=== PATIENT | female | born 1950 | race Caucasian/White ===

== ENCOUNTER → 2016-09-09 | Outpatient (CLI) | payer MEDICARE ==
[2015-01-28 15:30] VITALS: BP 116/59
[~2016-09-09] MED LIST: ASCO500C PO; CLOP75TA PO; CRESTOR10 MG PO; FLUT1DIS3 IH; GEMF600T3 PO; HYDR25TA9 PO; LOSA100T6 PO; PARO40TA61 PO; POTA10TA12 PO; UBID100C26 PO; VITA400C6 PO; VITA80003 PO
--- NOTE | 2016-09-09 14:08 | KCIC ---
Two view chest Indication: Chronic shortness of air Findings: The heart size is normal. Pulmonary vasculature is within normal limits. There is no pleural effusion, consolidating infiltrate, or pneumothorax. There are posterior changes of a median sternotomy. Impression: No acute disease of the chest. Electronically signed by: Cristopher Castaneda MD (09/09/2016 2:05 PM)
== END | disposition home or self-care (01) ==
LOC: KCIC 13:38
PROVIDERS: ATTEND Internal Medicine Pulmonary Disease
DX: J44.9 Chronic obstructive pulmonary disease, unspecified (principal); F17.200 Nicotine dependence, unspecified, uncomplicated
CPT/HCPCS: 71020

== ENCOUNTER → 2016-10-12 | Outpatient (CLI) | payer MEDICARE ==
[2015-01-28 15:30] VITALS: BP 116/59
--- NOTE | 2016-10-12 10:31 | RAD ---
CT chest without contrast 10/12/2016 Clinical indication: Tobacco use. COPD. Lung cancer screening. Comparison: None. Technique: Multiple CT images of the chest obtained without contrast according to standard protocol. Coronal and sagittal reformations were obtained. PQRS Compliance Statement: One or more of the following individualized dose reduction techniques were utilized for this examination: 1. Automated exposure control 2. Adjustment of the mA and/or kV according to patient size 3. Use of iterative reconstruction technique Findings: Chest: There are calcified nodules in the right thyroid gland, largest measuring 11 mm. Prior median sternotomy and coronary artery revascularization. [place] coronary artery vascular calculations. Heart size is normal without significant pericardial effusion. Thoracic aorta is normal in caliber with mild scattered calcified atheromatous disease. 3 mm noncalcified nodule in the right upper lobe (series 4/image 57). Tiny calcified granuloma in the lingula. There is a 3 mm noncalcified nodule in the left upper lobe (series 4/image 64). No pleural effusion or pneumothorax. Limited images of the upper abdomen: Prior cholecystectomy. Impression: 1. Two small bilateral 3 mm noncalcified pulmonary nodules. Lung RADS category 2. Recommendation: Continue annual screening with low-dose CT in 12 months.
== END | disposition home or self-care (01) ==
LOC: CT 08:42
PROVIDERS: ATTEND Internal Medicine Pulmonary Disease
DX: Z12.2 Encounter for screening for malignant neoplasm of respiratory organs (principal); Z72.0 Tobacco use; J44.9 Chronic obstructive pulmonary disease, unspecified
CPT/HCPCS: 71250

== ENCOUNTER 2017-05-02 14:39 | Emergency (ER) | payer MEDICARE ==
[2017-05-02] MEDS: HYDROmorphone 2 MG/ML VIAL IM ×2 (16:04)
== END 2017-05-02 17:05 | disposition home or self-care (01) ==
LOC: ER 14:39
DX: G89.29 Other chronic pain (principal); M25.551 Pain in right hip; I10 Essential (primary) hypertension; F41.9 Anxiety disorder, unspecified; F32.9 Major depressive disorder, single episode, unspecified; E78.00 Pure hypercholesterolemia, unspecified; I25.2 Old myocardial infarction; Z95.1 Presence of aortocoronary bypass graft; Z88.8 Allergy status to other drugs, medicaments and biological substances
CPT/HCPCS: 96372; 99283-25; J1170

== ENCOUNTER 2017-05-11 05:55 | Day surgery (SDC) | payer MEDICARE ==
[2017-05-11] MEDS: IV RINGERS,LACTATED 1000ML 1,000 ML IV (06:35)
[2017-05-11] MEDS ORDERED: ONDANSETRON PF 4 MG/2 ML VIAL. IV (07:00)
[2017-05-11] MEDS ORDERED: MORPHINE SULFATE 2 MG/ML DISP.SYRIN. IV (07:00)
[2017-05-11] MEDS ORDERED: fentaNYL PF VIAL 100 MCG/2 ML VIAL IV (07:00)
[2017-05-11] MEDS ORDERED: LIDOCAINE 1% PF 2 ML VIAL. ID (07:00)
[2017-05-11] MEDS ORDERED: PROCHLORPERAZINE 10 MG/2 ML VIAL. IV (07:00)
[2017-05-11] MEDS ORDERED: ROPIVacaine 0.2% PF 10 ML VIAL. (07:04)
[2017-05-11] MEDS ORDERED: LIDOCAINE 2% PF Vial for OR 5 ML VIAL. (07:13)
[2017-05-11] MEDS ORDERED: PROPOFOL 20 ML IV (07:13)
[2017-05-11] MEDS ORDERED: ONDANSETRON PF 4 MG/2 ML VIAL. (07:13)
[2017-05-11] MEDS ORDERED: MIDAZOLAM HCL/PF 2 MG/2 ML VIAL. (07:13)
[2017-05-11] MEDS ORDERED: fentaNYL PF VIAL 100 MCG/2 ML VIAL ×4 (07:13→10:14)
[2017-05-11] MEDS ORDERED: DEXAMETHASONE SOD PHOS 20 MG/5 ML VIAL. (07:13)
[2017-05-11] MEDS ORDERED: ROCURONIUM 50 MG/5 ML VIAL. (07:48)
[2017-05-11] MEDS ORDERED: GLYCOPYRROLATE 1 MG/5 ML VIAL. (08:08)
[2017-05-11] MEDS ORDERED: NEOSTIGMINE METHYLSULFATE 5 MG/5 ML SYRINGE. (08:46)
[2017-05-11] MEDS ORDERED: SEVOFLURANE 61 TO 120 MINUTES. IH (08:58)
[2017-05-11] MEDS: fentaNYL PF VIAL 100 MCG/2 ML VIAL IV ×3 (09:46→10:17)
[2017-05-11] MEDS: HYDROcodone/APAP 7.5/325MG 1 TAB TABLET PO (10:28)
== END 2017-05-11 10:42 | disposition home or self-care (01) ==
LOC: SURG 05:55
DX: M70.61 Trochanteric bursitis, right hip (principal); I25.10 Atherosclerotic heart disease of native coronary artery without angina pectoris; E78.00 Pure hypercholesterolemia, unspecified; J44.9 Chronic obstructive pulmonary disease, unspecified; I10 Essential (primary) hypertension; M19.90 Unspecified osteoarthritis, unspecified site; F41.9 Anxiety disorder, unspecified; F17.200 Nicotine dependence, unspecified, uncomplicated; Z72.0 Tobacco use; Z86.69 Personal history of other diseases of the nervous system and sense organs; Z90.49 Acquired absence of other specified parts of digestive tract; Z87.39 Personal history of other diseases of the musculoskeletal system and connective tissue; Z88.8 Allergy status to other drugs, medicaments and biological substances
CPT/HCPCS: 29999; J0690; J1100; J2250; J2405; J2704; J2710; J2795; J3010; J3490

== ENCOUNTER 2017-05-23 19:38 | Emergency (ER) | payer MEDICARE ==
[2017-05-23 21:33] LABS: INFLUENZA A PATIENT NEGATIVE (NEGATIVE); INFLUENZA B PATIENT NEGATIVE (NEGATIVE); OBC FLU VALID
[2017-05-23] MEDS: predniSONE 10 MG TABLET PO (21:40)
[2017-05-23] MEDS: ALBUTEROL SULFATE 2.5 MG/3 ML NEBU. CONT NEB (21:52)
== END 2017-05-23 23:53 | disposition home or self-care (01) ==
LOC: ER 19:38
DX: J06.9 Acute upper respiratory infection, unspecified (principal); R06.2 Wheezing; I10 Essential (primary) hypertension; E78.00 Pure hypercholesterolemia, unspecified; I25.2 Old myocardial infarction; Z95.5 Presence of coronary angioplasty implant and graft; Z90.49 Acquired absence of other specified parts of digestive tract; Z88.8 Allergy status to other drugs, medicaments and biological substances; Z91.041 Radiographic dye allergy status
CPT/HCPCS: 71046; 87804; 87804-59; 94640; 94644; 99285-25; J7512; J7613

== ENCOUNTER 2017-07-19 11:37 | Emergency (ER) | payer MEDICARE ==
[2017-07-19] MEDS: DIPHTH,PERTUSS(ACELL),TET TOX 0.5 ML DISP.SYRIN. VAX IM (13:44)
[2017-07-19] MEDS: GELATIN SPONGE SIZE 12-7MM SPONGE. TP (13:45)
== END 2017-07-19 14:23 | disposition home or self-care (01) ==
LOC: ER 14:23
DX: S61.001A Unspecified open wound of right thumb without damage to nail, initial encounter (principal); E78.00 Pure hypercholesterolemia, unspecified; I10 Essential (primary) hypertension; I25.2 Old myocardial infarction; Z79.02 Long term (current) use of antithrombotics/antiplatelets; Z88.1 Allergy status to other antibiotic agents; Z88.8 Allergy status to other drugs, medicaments and biological substances; X58.XXXA Exposure to other specified factors, initial encounter; Y93.89 Activity, other specified; Y99.8 Other external cause status; Y92.89 Other specified places as the place of occurrence of the external cause
CPT/HCPCS: 90471; 90715; 99283-25

== ENCOUNTER → 2017-10-18 | Outpatient (CLI) | payer MEDICARE | END | disposition home or self-care (01) | LOC: CT 10:01 | DX: I70.0 Atherosclerosis of aorta (principal); I25.2 Old myocardial infarction; I10 Essential (primary) hypertension; E78.00 Pure hypercholesterolemia, unspecified; F41.9 Anxiety disorder, unspecified; J44.9 Chronic obstructive pulmonary disease, unspecified; E66.9 Obesity, unspecified; I25.10 Atherosclerotic heart disease of native coronary artery without angina pectoris; K21.9 Gastro-esophageal reflux disease without esophagitis; R91.8 Other nonspecific abnormal finding of lung field; Z87.891 Personal history of nicotine dependence; Z95.1 Presence of aortocoronary bypass graft; Z87.39 Personal history of other diseases of the musculoskeletal system and connective tissue; Z86.69 Personal history of other diseases of the nervous system and sense organs; Z90.49 Acquired absence of other specified parts of digestive tract; Z79.02 Long term (current) use of antithrombotics/antiplatelets | CPT/HCPCS: 71250 ==

== ENCOUNTER → 2017-11-09 | Outpatient (CLI) | payer MEDICARE ==
[2017-07-19 12:30] VITALS: BP 161/79
[~2017-11-09] MED LIST changes: +ALBU2.5V5 NEB; +FLUT1DIS IH; +HYDR-965 PO; +HYDR-971 PO; +METH4TAB2 PO; +PANT20TA2 PO; +PRED50TA PO; +TRAZ-85 PO; +VENTOLIN HFA18 GM INH
--- NOTE | 2017-11-09 16:16 | RAD ---
Bilateral lower extremity arterial duplex ultrasound 11/09/2017 Indication: Claudication. Comparison study: None Discussion: Ultrasound evaluation of the major arteries of the bilateral lower extremities was performed. Evaluation includes color Doppler imaging spectral analysis Right lower extremity: mild atherosclerotic plaquing and increased velocities are seen within the right common femoral artery is 227 cm/s. Findings suggest possible 30-70% stenosis. Within the proximal right superficial femoral artery there is an area of focal increased velocity measuring 191 cm/s possibly reflecting a secondary to 70% stenosis. Mild elevated velocity within the distal SFA is also seen accounting for inflow disease. Waveforms are grossly maintained. No other focal narrowings are identified. Left lower extremity: Elevated velocities seen within the left superficial femoral artery with velocity of 201 cm/s. Elevated velocity within the distal left SFA is also seen up to 194 cm/s. Findings again suggestive 30-70% stenosis. No other focal stenoses are identified. Waveforms are grossly maintained. Impression: 1. Possibly hemodynamically significant stenoses involving the right common femoral and superficial femoral arteries 2. Possible hemodynamic significant stenoses involving the left superficial femoral artery 3. Consider CT or conventional angiography for further evaluation as clinically indicated
== END | disposition home or self-care (01) ==
LOC: KCIC US 14:11
PROVIDERS: ATTEND Family Medicine
DX: I70.213 Atherosclerosis of native arteries of extremities with intermittent claudication, bilateral legs (principal); I25.2 Old myocardial infarction; I10 Essential (primary) hypertension; E78.00 Pure hypercholesterolemia, unspecified; J44.9 Chronic obstructive pulmonary disease, unspecified; E66.9 Obesity, unspecified; K21.9 Gastro-esophageal reflux disease without esophagitis; I25.10 Atherosclerotic heart disease of native coronary artery without angina pectoris; Z87.891 Personal history of nicotine dependence; Z87.39 Personal history of other diseases of the musculoskeletal system and connective tissue; Z86.69 Personal history of other diseases of the nervous system and sense organs; Z90.49 Acquired absence of other specified parts of digestive tract; Z88.1 Allergy status to other antibiotic agents; Z88.8 Allergy status to other drugs, medicaments and biological substances
CPT/HCPCS: 93925

== ENCOUNTER → 2018-07-26 | Outpatient (CLI) | payer MEDICARE ==
[2017-12-17 13:20] VITALS: BP 154/62
[~2018-07-26] MED LIST changes: +ASPI81TA50 PO; +DOCU-109 PO; -GEMF600T3 PO; +GEMF600T8 PO; +HYDR-2145 PO; +HYDR-3164 PO; +HYDR-3165 PO; -HYDR-965 PO; -HYDR-971 PO; -HYDR25TA9 PO; +LOSA100T14 PO; -LOSA100T6 PO; +METH750T2 PO; +REGADENOSON 0.4 MG/5 ML DISP.SYRIN. IV ONE; +TRAZ-118 PO; -TRAZ-85 PO; +ZOLP5TAB PO
--- NOTE | 2018-07-26 11:58 | RAD ---
MR#: [id number] Date of Study: 07/26/2018 Ordering Physician: GIOVANNI PERSON, Referring Physician: JUANY LANDERS Tech: RT John (R) (N) APPROVED REPORT Test Type: Pharmacological Stress Nurse/Tech: Fred SHEN Test Indications: CAD Cardiac History: CABG 1998, Cardiac Stents in 2014, HTN, See EMR Medications: ASA, See EMR Medical History: Decreased Renal function, COPD, Smoker for 40yrs, See EMR Resting ECG: SR Resting Heart Rate: 63 bpm Resting Blood Pressure: 140/57mmHg Pretest Chest Pain: No chest pain Nurse/Tech Notes Lungs CTA, Heart tones regular. Consent: The procedure was explained to the patient in lay terms. Informed consent was witnessed. Willie eout was entered into [facility]. History and Stress Test performed by LIZETTE Melgar Pharm. Details Pharmacologic stress testing was performed using 0.4mg per 5ml of regadenoson given intravenously ove r 7-10 seconds. Stress Symptoms Dyspnea. Pt c/o chest pressure/ "tightness" accompanied with SOB at 7/10 in stage 1 at 00:37 throu gh stage 1 at 01:00. Pt started having frequent PVCs at this time. From stage R at 00:55 pt's chest pressure and SOB started to decrease until; chest pressure was a 1/10 at stage R at 05:02. Pt explai michael by the end of the test her SOB had resolved. POST EXERCISE Reason for Termination: Infusion complete Max HR: 102 bpm Max Blood Pressure: 143/57mmHg Blood Pressure response to exercise: Normal blood pressure response during stress. Chest Pain: Yes. See stress symptoms. Arrhythmia: Yes. Frequent PVCs. See stress symptoms. ST Change: No. INTERPRETATION Stress EKG Conclusion: The resting EKG shows a sinus rhythm and mild nonspecific ST-T wave changes. The stress EKG shows no significant changes from baseline. No EKG evidence of stressed induced ischemia. Imaging Protocol IMAGE PROTOCOL: Rest Tc-99m/stress Tc-99m 1 day Rest: Stress: Viability: Radiopharm.Tc99m QrfmmtrovJo94c Sestamibi Dose10.6mCi 32.3mCi Duration 13min. 13min. Img Date 07/26/2018 07/26/2018 Inj-Img Kzdq70cim. 60min. Rest Admin Site:IV - Right AntecubitalAdministrator:RT John (R)(N) Stress Admin Site: IV - Right AntecubitalAdministrator: LIZETTE Melgar STRESS DATA End Diast. Vol.76.0mlLVEDV index BSA42.0ml End Syst. Vol.24.0mlLVESV index BSA13.0ml Myocardial Ogrl116.0gEject. Ttgwmoes38.0% Stress Scores Regional WT0.00Summed WT7.00 Regional WM0.00Summed WM7.00 LV Perfusion The stress scans show slight inferior basilar thinning. The rest scans show slight inferior basilar thinning Nuclear imaging shows no reversible ischemia. There is minimal fixed thinning of the inferior basilar wall. Wall Motion Left ventricular systolic function is normal with no regional wall motion abnormalities and an ejecti on fraction of 68%. LV Perf. Quant 17 Seg. SSS0.00 17 Seg. SRS1.00 17 Seg. SDS0.00 Stress Defect Extent (% LAD)0.00Rest Defect Extent (% LAD)0.00Rev. Defect Extent (% LAD)0.00 Stress Defect Extent (% LCX) 0.00Rest Defect Extent (% LCX)0.00Rev. Defect Extent (% LCX)0.00 Stress Defect Extent (% RCA)0.00Rest Defect Extent (% RCA)0.00Rev. Defect Extent (% RCA)0.00 Stress Defect Extent (% FANNY)0.00Rest Defect Extent (% FANNY)0.00Rev. Defect Extent (% FANNY)0.00 Conclusion 1. No EKG evidence of stressed induced ischemia. 2. Nuclear imaging shows no reversible ischemia. 3. Nuclear imaging shows slight fixed inferior basilar thinning which is most consistent with a techn ical artifact. 4. Normal left ventricular systolic function with an ejection fraction of 68%. 5. Moderately low risk Lexiscan nuclear stress test with no reversible ischemia and normal LV systoli c function. Signed by : Jesus Beltre MD Electronically Approved : 07/26/2018 11:57:20
--- NOTE | 2018-07-26 12:26 | CARD ---
MR#: [id number] Date of Study: 07/26/2018 Ordering Physician: GIOVANNI PERSON, Referring Physician: GIOVANNI PERSON Tech: Annetta Leigh RDCS APPROVED REPORT EXAM: Two-dimensional and M-mode echocardiogram with Doppler and color Doppler. Other Information Quality : Good INDICATION Cardiac Disease: CAD Surgery/Intervention CABG: Date: 1998 2D DIMENSIONS Left Atrium(2D)4.3 (1.6-4.0cm)IVSd1.2 (0.7-1.1cm) Aortic Root(2D)2.6 (2.0-3.7cm)LVDd5.8 (3.9-5.9cm) LVOT Diameter1.9 (1.8-2.4cm)PWd1.1 (0.7-1.1cm) LVDs4.9 (2.5-4.0cm)FS (%) 15.0 % SV51.4 ml Aortic Valve AoV Peak Carlo.187.4cm/sAoV VTI41.2cm AO Peak GR.14.0mmHgLVOT Peak Carlo.123.2cm/s LVOT VTI 32.41cmAO Mean GR.8mmHg WILLIE (VMAX)1.48zz3AHU (VTI)2.26cm2 AI P 1/2 Syjy765hj Mitral Valve MV E Tqcxvyyu841.8cm/sMV DECEL DLVR689wp MV A Crvnwkwn906.4cm/sMV RDO40lv E/A Ratio0.8MVA (PHT)2.21cm2 TDI E/Lateral E'14.1E/Medial E'26.9 Tricuspid Valve TR P. Cyrqmxfb721ya/sRAP HTOMLAYV1lbLp TR Peak Gr.65ghIsTEKT73hsPp Pulmonary Vein S1 Bmcuhxxd43.7cm/sD2 Vsvwhlwz20.3cm/s LEFT VENTRICLE The left ventricle is normal size. There is mild concentric left ventricular hypertrophy. Left ventri ainsley systolic function is normal. The Ejection Fraction is 50-55%. There is normal LV segmental wall m otion. Transmitral Doppler flow pattern is Grade I-abnormal relaxation pattern. RIGHT VENTRICLE The right ventricle is normal size. The right ventricular systolic function is normal. ATRIA The left atrium is mildly dilated. The right atrium size is normal. The interatrial septum is intact with no evidence for an atrial septal defect or patent foramen ovale as noted on 2-D or Doppler imagi ng. AORTIC VALVE The aortic valve is calcified but opens well. Doppler and Color Flow revealed mild aortic regurgitati on. There is no significant aortic valvular stenosis. MITRAL VALVE The mitral valve is calcified but opens well. Posterior mitral annular calcification is moderate. The re is no evidence of mitral valve prolapse. There is no mitral valve stenosis. Doppler and Color-flow revealed mild mitral regurgitation. TRICUSPID VALVE The tricuspid valve is normal in structure and function. Doppler and Color Flow revealed mild tricusp id regurgitation. The PA pressure was estimated at 28 mmHg. There is no tricuspid valve stenosis. PULMONIC VALVE The pulmonic valve is not well visualized. Doppler and Color Flow revealed trace pulmonic valvular re gurgitation. There is no pulmonic valvular stenosis. GREAT VESSELS The aortic root is normal in size. The ascending aorta is normal in size. The IVC is normal in size a nd collapses >50% with inspiration. PERICARDIAL EFFUSION There is no evidence of significant pericardial effusion. Critical Notification Critical Value: No <Conclusion> The left ventricle is normal size. Left ventricle systolic function is normal. The Ejection Fraction is 50-55%. There is mild concentric left ventricular hypertrophy. There is no significant aortic valvular stenosis. Doppler and Color Flow revealed mild aortic regurgitation. Doppler and Color-flow revealed mild mitral regurgitation. Doppler and Color Flow revealed mild tricuspid regurgitation. The PA pressure was estimated at 28 mmHg. Signed by : Jesus Beltre MD Electronically Approved : 07/26/2018 12:26:39
== END | disposition home or self-care (01) ==
LOC: NM 08:09
PROVIDERS: ATTEND Internal Medicine Cardiovascular Disease
DX: I08.3 Combined rheumatic disorders of mitral, aortic and tricuspid valves (principal); I11.9 Hypertensive heart disease without heart failure; J44.9 Chronic obstructive pulmonary disease, unspecified; Z95.1 Presence of aortocoronary bypass graft; Z95.818 Presence of other cardiac implants and grafts; Z87.891 Personal history of nicotine dependence; Z79.01 Long term (current) use of anticoagulants
CPT/HCPCS: 78452; 93017; 93306; A9500; J2785

== ENCOUNTER → 2019-08-17 | Outpatient (CLI) | payer MEDICARE ==
[2017-12-17 13:20] VITALS: BP 154/62
[~2019-08-17] MED LIST changes: -POTA10TA12 PO; +POTASSIUM CHLO10 ME1 PO; -REGADENOSON 0.4 MG/5 ML DISP.SYRIN. IV ONE
--- NOTE | 2019-08-17 14:12 | CARD ---
MR#: [id number] Date of Study: 08/17/2019 Ordering Physician: GIOVANNI PERSON, Referring Physician: GIOVANNI PERSON Tech: Annetta Leigh RDCS APPROVED REPORT EXAM: Two-dimensional and M-mode echocardiogram with Doppler and color Doppler. Other Information Quality : Good INDICATION Cardiac Disease: CAD Surgery/Intervention CABG: Date: 1998 2D DIMENSIONS RVDd2.8 (2.9-3.5cm)Left Atrium(2D)3.3 (1.6-4.0cm) IVSd1.1 (0.7-1.1cm)Aortic Root(2D)2.4 (2.0-3.7cm) LVDd5.8 (3.9-5.9cm)LVOT Diameter2.0 (1.8-2.4cm) PWd1.0 (0.7-1.1cm)LVDs4.4 (2.5-4.0cm) FS (%) 24.7 %SV81.1 ml LVEF(%)48.3 (>50%) Aortic Valve AoV Peak Carlo.180.9cm/sAoV VTI34.1cm AO Peak GR.13.1mmHgLVOT Peak Carlo.137.9cm/s AO Mean GR.6mmHgAVA (VMAX)2.48cm2 WILLIE (VTI)2.75xb6TL P 1/2 Rfup668wa Mitral Valve MV E Xdqjmgyb445.0cm/sMV DECEL SDBX247sa MV A Twfypzgr739.6cm/sE/A Ratio0.7 Tricuspid Valve TR P. Igcobggo438ww/sRAP QVFCSCBT1qqPd TR Peak Gr.83jwJrJMKF81khCr Pulmonary Vein S1 Ahuhhxds09.9cm/sD2 Qxwsyhnb52.1cm/s LEFT VENTRICLE The left ventricle is normal size. There is mild asymmetric septal left ventricular hypertrophy. Left ventricle systolic function is normal. The Ejection Fraction is 50-55%. There is normal LV segmental wall motion. Transmitral Doppler flow pattern is Grade I-abnormal relaxation pattern. RIGHT VENTRICLE The right ventricle is normal size. The right ventricular systolic function is normal. ATRIA The left atrium size is normal. The right atrium size is normal. The interatrial septum is intact wit h no evidence for an atrial septal defect or patent foramen ovale as noted on 2-D or Doppler imaging. AORTIC VALVE The aortic valve is calcified but opens well. Doppler and Color Flow revealed moderate aortic regurgi tation. There is no significant aortic valvular stenosis. MITRAL VALVE The mitral valve is calcified but opens well. Mitral annular calcification is mild. There is no evide nce of mitral valve prolapse. There is no mitral valve stenosis. Doppler and Color-flow revealed trac e to mild mitral regurgitation. TRICUSPID VALVE The tricuspid valve is normal in structure and function. Doppler and Color Flow revealed mild tricusp id regurgitation. The PA pressure was estimated at 31 mmHg. There is no tricuspid valve stenosis. PULMONIC VALVE The pulmonic valve is not well visualized. Doppler and Color Flow revealed no pulmonic valvular regur gitation. There is no pulmonic valvular stenosis. GREAT VESSELS The aortic root is normal in size. The ascending aorta is not well seen. The IVC is normal in size an d collapses >50% with inspiration. PERICARDIAL EFFUSION There is no evidence of significant pericardial effusion. Critical Notification Critical Value: No <Conclusion> Left ventricle systolic function is normal. The Ejection Fraction is 50-55%. Moderate aortic regurgitation. Trace to mild mitral regurgitation. Mild tricuspid regurgitation. The PA pressure was estimated at 31 mmHg. There is no evidence of significant pericardial effusion. Signed by : Giovanni Person, Electronically Approved : 08/17/2019 14:12:15
== END ==
LOC: ECHO 13:18
PROVIDERS: ATTEND Internal Medicine Cardiovascular Disease
DX: I08.3 Combined rheumatic disorders of mitral, aortic and tricuspid valves (principal); I25.10 Atherosclerotic heart disease of native coronary artery without angina pectoris
CPT/HCPCS: 93306

== ENCOUNTER → 2019-09-08 | Outpatient (CLI) | payer MEDICARE ==
[2017-12-17 13:20] VITALS: BP 154/62
--- NOTE | 2019-09-08 14:49 | KCIC ---
LUMBAR SPINE WO CONTRAST History: Reason: LUMBAR RADICULOPATHY / Spl. Instructions: / History: LBP with right leg pain, worsening. Prior surgery for a cyst removal. Technique: Multiplanar, multi sequential MR imaging was performed of the lumbar spine. Comparison: December 07, 2017 Findings: Multilevel degenerative endplate edema most prominent L3-L4, progressed compared to prior. Grade 1 anterolisthesis L3 on L4, increased compared to prior. Conus terminates at the normal location. No evidence of nerve root clumping. L1-L2: Disc bulge eccentric to the right. Subarticular recess narrowing, right greater than left. Mild facet arthropathy. Mild neuroforaminal narrowing. L2-L3: Disc bulge. Moderate facet arthropathy. Subacute recess narrowing. No canal narrowing. Mild left neuroforaminal narrowing. No right neuroforaminal narrowing. L3-L4: Anterolisthesis. Postoperative changes laminectomy and reported facet cyst removal. Improved canal narrowing compared to prior. Mild subarticular recess narrowing. No canal narrowing. Moderate bilateral neuroforaminal narrowing, increased compared to prior. L4-L5: Broad-based disc bulge. Advanced facet arthropathy. Mild canal narrowing. Subarticular recess narrowing. Moderate to severe right and moderate left neuroforaminal narrowing, unchanged. L5-S1: Disc bulge. Advanced right and moderate left facet arthropathy. No canal narrowing. Mild bilateral neuroforaminal narrowing. Impression: 1. Interval postoperative changes L3-L4 with resolved canal narrowing. 2. New grade 1 anterolisthesis L3 on L4 with increased neuroforaminal narrowing. 3. Multilevel lumbar spondylosis most prominent L4-L5 with mild canal narrowing, similar compared to prior. Electronically signed by: Corey Andino DO (09/08/2019 2:46 PM) [id number]
== END | disposition home or self-care (01) ==
LOC: KCIC MRI 12:20
PROVIDERS: ATTEND Family Medicine
DX: M47.26 Other spondylosis with radiculopathy, lumbar region (principal); M48.061 Spinal stenosis, lumbar region without neurogenic claudication
CPT/HCPCS: 72148

== ENCOUNTER → 2019-10-05 | Outpatient (CLI) | payer MEDICARE ==
[2017-12-17 13:20] VITALS: BP 154/62
[~2019-10-05] MED LIST changes: +PANT40TA77 PO
--- NOTE | 2019-10-05 14:01 | PAIN ---
DATE OF SERVICE: 10/05/2019 INITIAL CONSULTATION FOR PAIN CLINIC CHIEF COMPLAINT: Low back and left lower extremity pain. HISTORY OF PRESENT ILLNESS: This is a 68-year-old female who presents with history of pain in the low back, left lower extremity since about 02/2019. The patient reports it is not a result of any specific injury or action that she is aware of, but has been increasing with pain, low back, left lower extremity and anterior thigh, anterior lateral thigh, medial thigh, medial knee and medial lower leg. The patient reports it is worse with walking, standing, changing positions across the low back, but mostly on the left side. The patient reports it is becoming more constant with radiating pain, changes during the day, worse with activity, standing, walking, changing positions, better with sitting or lying down, does awaken her from sleep about twice a night; however, does not affect her bowel or bladder control, but does affect her ability to walk with significant fatigue. She is not using any assistive devices, however, to ambulate. The patient has had some trigger point injections in the hip and knee with her orthopedic surgeon, which was not helpful. The patient is taking a pain pill, she is unsure of the name of it. It sounds like hydrocodone, also bufv-elm-mescsma anti-inflammatories Advil, also some Tylenol, which has not been very helpful as well. The hydrocodone does help by about 20%. The patient rates her disability range 0-10, 10 being the worst, is at 9 with family and home responsibilities, 8 with recreation and social activity and life support activities, and occupational and 1 with sexual behavior, 7 with self-care activities. The patient did have MRI scan of the lumbar spine showing interval postoperative changes at L3-L4 with resolved canal narrowing. New grade 1 anterolisthesis L3 on L4 with increased neural foraminal narrowing, multilevel lumbar spondylosis, most prominent at L4-L5 with mild canal narrowing, similar to prior study compared with 11/2017, recent MRI was on 09/08/2019. PAST MEDICAL HISTORY: Significant for hypertension, COPD, shortness of breath, cigarette smoking, arthritis, coronary artery disease. PREVIOUS SURGERY: Include lumbar surgery in 2018 with cyst removed. Cardiac stent in 2013, cholecystectomy in 1999, sinus surgery in 2004, coronary artery bypass graft in 1994. CURRENT MEDICATIONS: Include albuterol inhaler, Colace, methocarbamol, pantoprazole, hydrocodone, gemfibrozil, clopidogrel, potassium, Coenzyme Q10, hydrochlorothiazide, Crestor, losartan, fluticasone, trazodone and vitamin C. Also daily baby aspirin, vitamin A and E and Ambien. ALLERGIES: THE PATIENT IS ALLERGIC TO LISINOPRIL AND ATORVASTATIN. FAMILY HISTORY: Significant for hypertension and heart disease. SOCIAL HISTORY: The patient does not drink alcohol. Does smoke about a pack a day and has for 40 years. Does not use any illegal, illicit or recreational drugs. She is single, lives with her son locally in [place]. REVIEW OF SYSTEMS: The patient's review of systems is positive for those items mentioned in history of present illness. All systems reviewed and otherwise negative. It is complete, full, well documented on the patient's chart. PHYSICAL EXAMINATION: VITAL SIGNS: The patient's blood pressure 144/61, pulse 70, respirations 18, temperature 98.8 degrees Fahrenheit. Height is 5 feet 1 inch, weight is 180 pounds. GENERAL: The patient is awake, alert, oriented, appropriate, very pleasant demeanor. HEENT: Head shows normocephalic, atraumatic. Extraocular movements are intact and symmetrical. Oral cavity: Mucous membranes are moist and pink. Dentition is intact. NECK: Shows anterior throat supple without palpable lymphadenopathy noted. Swallow reflex symmetrical. CHEST: Shows normal on inspection with well-healed surgical scar in the sternotomy distribution. Breath sounds are clear to auscultation. No rales, rhonchi or wheezes auscultated. HEART: Shows S1, S2 clear. No murmurs auscultated. ABDOMEN: Soft, nontender, nondistended. No palpable organomegaly is noted. No rebound or guarding demonstrated. BACK: Shows spine grossly in the midline. Normal appearing thoracic kyphosis and some minor flattening of lumbar lordotic curvature. Well-healed surgical scar noted. Lumbar paraspinous muscle shows symmetrical on inspection, on palpation shows some moderate tenderness diffusely bilaterally in the middle and lower distribution of paraspinous muscles, but without significant radiation. The patient shows good rotational motion of lumbar spine, both laterally as well as extension and flexion without significant difficulty. The patient shows no tenderness over the spinous processes, sacrum or sacroiliac regions. She has good rotational motion of the lumbar spine, both laterally greater than 10 degrees right and left as well as extension to greater than 10 degrees, forward flexion 45 degrees without significant increase in pain. EXTREMITIES: The patient's lower extremities show deep tendon reflexes 2+ in the patellar, 1+ tendo-calcaneus tendons. Motor exam is approximately 4 on a scale of 5 with left dorsiflexion, extension, quadriceps and hamstring flexion and 5/5 on the right. Peripheral pulses are 1+ posterior tibia. No peripheral edema is noted. Lower extremities are warm and dry to touch, equal in color and appearance. The patient's straight leg raise noted to be negative for reproduction of radicular symptoms bilaterally. Gaenslen's and Pipo's maneuvers are negative for reproduction of any pain bilaterally as well. The patient is able to stand, stand on her toes without significant difficulty or loss of balance, not using any assistive devices to ambulate. Walks with a normal appearing gait for short distance in the office today. SKIN: The patient's skin shows warm and dry, good turgor. No edema. No sores, rashes or bruising throughout. IMPRESSION: 1. This is a 68-year-old female with long history approximately 7 months of low back and left lower extremity pain in a radicular fashion. 2. MRI scan of the lumbar spine as noted. 3. Hypertension. 4. Coronary artery disease. 5. Chronic obstructive pulmonary disease. 6. Cigarette smoking. 7. Arthritis. PLAN: Options were discussed with the patient including conservative medical managements, physical therapies and interventional techniques. We discussed a lumbar epidural steroid injection using description as well as anatomical models to describe the procedure. The patient will wait for clearance from milk house worker as far as holding her Plavix for 7 days prior to procedure. If clearance is deemed safe and appropriate, we will have her return for lumbar epidural steroid injection at that time. ANDI MARCANO MD DR: SUNDAY/marina JOB#: [id number] / [id number] SHARIF Hylton MD
== END | disposition home or self-care (01) ==
LOC: PNCL 11:09
PROVIDERS: ATTEND Anesthesiology
DX: I25.10 Atherosclerotic heart disease of native coronary artery without angina pectoris (principal); I10 Essential (primary) hypertension; J44.9 Chronic obstructive pulmonary disease, unspecified; M46.86 Other specified inflammatory spondylopathies, lumbar region; Z87.891 Personal history of nicotine dependence; M79.669 Pain in unspecified lower leg
CPT/HCPCS: G0463

== ENCOUNTER → 2019-10-19 | Outpatient (CLI) | payer MEDICARE ==
[2017-12-17 13:20] VITALS: BP 154/62
[~2019-10-19] MED LIST changes: +IOHEXOL 180 MG/ML 10 ML VIAL. ONE; +methylPREDNISolone ACETATE 40 MG/ML VIAL. ONE; +methylPREDNISolone ACETATE 80 MG/ML VIAL. ONE
--- NOTE | 2019-10-19 11:49 | PDOC ---
Progress Note - Pain Clinic Date of Service: DOS: DATE: 10/19/19 TIME: 11:43 Diagnosis: Dx: Lumbar radiculopathy with lumbar degenerative disease and post lumbar laminectomy syndrome History or Present Illness: HPI: Mrs. Maria a 68-year-old female turns follow-up status post initial evaluation and authorization to hold her Plavix. 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 Patient still reports pain in the low back in the left lower extremity posterior gluteus lateral thigh anterior thigh medial thigh groin and medial lower leg as it was previously without significant increase in pain but with significant pain in the back and leg still radiating described as aching and tight constant. Patient reports an 8 on scale 10 is worse over the past week 8 on average 7 is least is an 8 today. Reports no new motor or sensory deficit no new bowel or bladder incontinence or other complaints. Physical Exam: VS: Blood pressure 144/67 pulse 74 respirations are 18 temperature 98.6 F weight is 1 7 9 pounds PE: PHYSICAL EXAMINATION: GENERAL: The patient is awake, alert, oriented, appropriate, very pleasant demeanor HEENT: Shows normocephalic, atraumatic. Extraocular movements are intact and symmetrical. Oral cavity: Mucous membranes moist and pink. NECK: Shows anterior throat supple without palpable lymphadenopathy noted. Swallow reflex symmetrical. CHEST: Shows normal on inspection. Breath sounds clear bilaterally. HEART: Shows S1, S2 clear. No murmurs auscultated. ABDOMEN: Soft, nontender, nondistended. No palpable organomegaly is noted. No rebound or guarding demonstrated. BACK: Shows spine grossly in the midline. Normal-appearing cervical lordotic curvature. There is slightly increased thoracic kyphosis, some minor flattening of the lumbar lordotic curvature with well-healed surgical scar in the midline. Lumbar paraspinous muscles show symmetrical on inspection, on palpation shows some moderate tenderness diffusely throughout the upper, middle and lower distribution of the paraspinous muscles bilaterally without specific trigger points, without radiation of pain. The patient has good rotational motion of the lumbar spine, both laterally as well as extension and flexion without significant difficulty. No tenderness over the spinous processes, sacrum or sacroiliac regions. EXTREMITIES: Lower extremities show deep tendon reflexes 2+ in the patellar and tendo calcaneus tendons. Motor exam is 5 on a scale of 5 with right dors iflexion, extension, quadriceps and hamstring flexion and 4/5 on the left. Peripheral pulses are 1+ posterior tibial. No peripheral edema is noted bilaterally. Lower extremities are warm and dry to touch, equal in color and appearance. Gaenslen's and Pipo's maneuvers are negative. The patient is able to stand with some moderate unstable feeling standing attempting on her toe s but walks with a fairly significant favoring gait favoring the left lower extremity does not have any assistive devices with her to ambulate today. SKIN: Shows warm and dry, good turgor. No edema. No sores, rashes or bruising throughout. Options were discussed with the patient. The patient's old chart was reviewed and current medication regimen updated. [] Procedure: Procedure: Options discussed with the patient patient's old chart was reviewed as her current medication regimen updated current review of systems updated today as well. We will proceed with lumbar epidural steroid injection today risks are discussed including but not limited to bleeding infection possibility of epidural hematoma and subsequent neurological compromise dural puncture headache spinal cord and or nerve damage side effects of steroid medication and poor results rating pain control. Patient understands wished to proceed. Patient will return to clinic in approximately 3 weeks, and will restart her Plavix on October 19 tomorrow. Medication Injected: Med Injected: Procedure is lumbar epidural steroid injection under local anesthetic using sterile prep and drape at the L4-5 level using C-arm fluoroscopic guidance in b oth AP and lateral views medications injected is 120 mg Depo-Medrol + 10 mL preservative-free normal saline and 2 mL Isovue for contrast- condition at discharge is stable patient tolerated procedure well had no complications. Condition at Discharge: Condition at Discharge: Condition at discharge stable patient tolerated procedure well and had no com plications. Patient return to clinic in approximate 3 weeks as scheduled again will restart Plavix tomorrow. ANDI MARCANO MD Oct 19, 2019 11:49
== END | disposition home or self-care (01) ==
LOC: PNCL 10:32
PROVIDERS: ATTEND Anesthesiology
DX: M51.16 Intervertebral disc disorders with radiculopathy, lumbar region (principal); I10 Essential (primary) hypertension; F17.210 Nicotine dependence, cigarettes, uncomplicated; Z98.890 Other specified postprocedural states; Z79.82 Long term (current) use of aspirin; Z79.899 Other long term (current) drug therapy; Z88.8 Allergy status to other drugs, medicaments and biological substances
CPT/HCPCS: 62323; J1030; J1040; Q9965

== ENCOUNTER → 2019-10-20 | Outpatient (CLI) | payer MEDICARE ==
[2017-12-17 13:20] VITALS: BP 154/62
[~2019-10-20] MED LIST changes: -IOHEXOL 180 MG/ML 10 ML VIAL. ONE; -methylPREDNISolone ACETATE 40 MG/ML VIAL. ONE; -methylPREDNISolone ACETATE 80 MG/ML VIAL. ONE
--- NOTE | 2019-10-20 15:06 | RAD ---
CT CHEST WO CONTRAST INDICATION: lung nodule COMPARISON STUDY: 10/14/2018. TECHNIQUE: Unenhanced axial images were obtained through the lungs and upper abdomen. Coronal and sagittal multiplanar reconstructions were also obtained. PQRS compliance statement: One or more of the following individualized dose reduction techniques were utilized for this examination: 1. Automated exposure control 2. Adjustment of the mA and/or kV according to patient size 3. Use of iterative reconstruction technique FINDINGS: Lungs and Airways: No pulmonary mass or consolidation. Stable few small pulmonary nodules with distribution sales representative nodule as follows: Stable right upper lobe nodule measuring 4 mm (series 8 image 62). Paraseptal emphysema. Mild scattered subpleural reticulation, may represent senescent change versus trace fibrosis. Normal central airways. Pleura: The pleural spaces are normal. Heart and Mediastinum: Stable right thyroid calcification. No axillary or supraclavicular lymphadenopathy. Stable enlarged right lower paratracheal lymph node measuring 1.4 cm. Normal cardiac size. Coronary artery atherosclerotic disease. No pericardial effusion. Atherosclerosis of the thoracic aorta and branch vessels. Abdomen: Cholecystectomy. Bones and Soft Tissues: Degenerative changes of the spine. Median sternotomy. IMPRESSION: 1. Continued stability of several small pulmonary nodules. 2. Stable enlarged mediastinal lymph node. Electronically signed by: Ricki Padilla MD (10/20/2019 3:03 PM) [id number]
== END ==
LOC: CT 13:14
PROVIDERS: ATTEND Internal Medicine Pulmonary Disease
DX: R91.8 Other nonspecific abnormal finding of lung field (principal); R59.0 Localized enlarged lymph nodes
CPT/HCPCS: 71250

== ENCOUNTER → 2019-11-09 | Outpatient (CLI) | payer MEDICARE ==
[2017-12-17 13:20] VITALS: BP 154/62
[~2019-11-09] MED LIST changes: +IOHEXOL 180 MG/ML 10 ML VIAL. ONE; +methylPREDNISolone ACETATE 40 MG/ML VIAL. ONE; +methylPREDNISolone ACETATE 80 MG/ML VIAL. ONE
--- NOTE | 2019-11-09 11:03 | PDOC ---
Progress Note - Pain Clinic Date of Service: DOS: DATE: 11/09/19 TIME: 10:59 Diagnosis: Dx: Lumbar radiculopathy with lumbar degenerative disease and lumbar postlaminectomy syndrome History or Present Illness: HPI: 8-year-old female returns for follow-up status post lumbar epidural steroid traction x1. Patient reports about 25% improvement overall in the low back and left lower extremity. Patient reports still pain the low back left lower extremity rating the posterior gluteus posterior lateral thigh lateral anterior thigh medial thigh to the knee on the left side worse with walking standing changing positions better with sitting and laying down patient reports does not awaken her from sleep generally. Patient reports pain to 7 on scale 10 is worse with past week 6 on average 6 at its least is a 6 today. Patient ports no new motor or sensory deficits no new bowel or bladder incontinence. Physical Exam: VS: Blood pressure is 139/50 pulse 78 respirations 18 temperature 98.7 F height is 5 feet 1 inches weight is 175 pounds PE: PHYSICAL EXAMINATION: GENERAL: The patient is awake, alert, oriented, appropriate, very pleasant demeanor HEENT: Shows normocephalic, atraumatic. Extraocular movements are intact and symmetrical. Oral cavity: Mucous membranes moist and pink. NECK: Shows anterior throat supple without palpable lymphadenopathy noted. S wallow reflex symmetrical. CHEST: Shows normal on inspection. Breath sounds are clear bilaterally, no rales rhonchi or wheezes auscultated. HEART: Shows S1, S2 clear. No murmurs auscultated. ABDOMEN: Soft, nontender, nondistended. No palpable organomegaly is noted. No rebound or guarding demonstrated. BACK: Shows spine grossly in the midline. Normal-appearing cervical lordotic curvature. There is slightly increased thoracic kyphosis, some minor flattening of the lumbar lordotic curvature. Lumbar paraspinous muscles show symmetrical on inspection, on palpation shows some moderate tenderness diffusely throughout the upper, middle and lower distribution of the paraspinous muscles bilaterally without specific trigger points, without radiation of pain. The patient has good rotational motion of the lumbar spine, both laterally as well as extension and flexion without significant difficulty. No tenderness over the spinous processes, sacrum or sacroiliac regions. EXTREMITIES: Lower extremities show deep tendon reflexes 2+ in the patellar and tendo calcaneus tendons. Motor exam is 5 on a scale of 5 with right dorsiflexion, extension, quadriceps and hamstring flexion and 4/5 on the left. Peripheral pulses are 1+ posterior tibial. [] peripheral edema is noted bilaterally. Lower extremities are warm and dry to touch, equal in color and appearance. SKIN: Shows warm and dry, good turgor. No edema. No sores, rashes or bruising throughout. Procedure: Procedure: Options were discussed with the patient. Patient's old chart was reviewed his recurrent medication regimen updated current review of systems updated today as well. We will proceed with a second in the series lumbar epidural steroid injection today with fluoroscopic guidance. Risks were discussed including but not limited to bleeding infection possibility of epidural hematoma subsequent neurological compromise dural puncture headache spinal cord and or nerve damage side effects steroid medication and portals chronic pain control. Patient understands wished to proceed. Patient return to clinic in approximate 2 weeks for follow-up was counseled as to return appointment to level and side effects to be aware. Medication Injected: Med Injected: Procedure is lumbar epidural steroid injection under local anesthetic using sterile prep and drape at the L4-5 level using C-arm fluoroscopic guidance in both AP and lateral views medications injected is 120 mg Depo-Medrol + 10 mL preservative-free normal saline and 2 mL contrast- condition at discharge is stable patient tolerated procedure well had no complications. Condition at Discharge: Condition at Discharge: Condition at discharge stable patient tolerated procedure well had no complications. ANDI MARCANO MD Nov 09, 2019 11:03
== END | disposition home or self-care (01) ==
LOC: PNCL 09:49
PROVIDERS: ATTEND Anesthesiology
DX: M51.16 Intervertebral disc disorders with radiculopathy, lumbar region (principal); M96.1 Postlaminectomy syndrome, not elsewhere classified; J44.9 Chronic obstructive pulmonary disease, unspecified; I10 Essential (primary) hypertension; F17.210 Nicotine dependence, cigarettes, uncomplicated; Z88.8 Allergy status to other drugs, medicaments and biological substances; Z79.899 Other long term (current) drug therapy; Z79.82 Long term (current) use of aspirin
CPT/HCPCS: 62323; J1030; J1040; Q9965

== ENCOUNTER → 2020-02-22 | Outpatient (CLI) | payer MEDICARE ==
[2017-12-17 13:20] VITALS: BP 154/62
[~2020-02-22] MED LIST changes: +ASPI81TA59 PO; +CETI10TA74 PO; +DOCU-153 PO; -IOHEXOL 180 MG/ML 10 ML VIAL. ONE; +OXYC1TAB15 PO; +ROSU10TA26 PO; -methylPREDNISolone ACETATE 40 MG/ML VIAL. ONE; -methylPREDNISolone ACETATE 80 MG/ML VIAL. ONE
[2020-02-22 13:23] LABS: BASO # 0.1 x10^3/uL (0.0-0.2); BASO % 1 % (0-3); EOS # 0.2 x10^3/uL (0.0-0.7); EOS % 3 % (0-3); HEMATOCRIT 31.8 % (36.0-47.0); HEMOGLOBIN 11.2 g/dL (12.0-15.5); LYMPH # 1.8 x10^3/uL (1.0-4.8); LYMPH % 30 % (24-48); MEAN CORPUSCULAR HEMOGLOBIN 32 pg (25-35); MEAN CORPUSCULAR HGB CONC 35 g/dL (31-37); MEAN CORPUSCULAR VOLUME 91 fL (79-100); MONO # 0.3 x10^3/uL (0.0-1.1); MONO % 6 % (0-9); NEUT # 3.6 x10^3/uL (1.8-7.7); NEUT % 60 % (31-73); PLATELET COUNT 249 x10^3/uL (140-400); RED BLOOD COUNT 3.51 x10^6/uL (3.50-5.40); RED CELL DISTRIBUTION WIDTH 12.8 % (11.5-14.5)
[2020-02-22 13:26] LABS: PROTHROMBIN TIME PATIENT 13.1 SEC (11.7-14.0)
--- NOTE | 2020-02-22 13:30 | EKG ---
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
[2020-02-22 13:35] LABS: ALBUMIN 3.6 g/dL (3.4-5.0); CREATININE 1.3 mg/dL (0.6-1.0); GFR 40.6; POTASSIUM 3.6 mmol/L (3.5-5.1); TOTAL BILIRUBIN 0.2 mg/dL (0.2-1.0); TOTAL PROTEIN 7.1 g/dL (6.4-8.2)
== END ==
LOC: SURGPAT 12:33
PROVIDERS: ATTEND Neurological Surgery
DX: Z01.812 Encounter for preprocedural laboratory examination (principal); M48.062 Spinal stenosis, lumbar region with neurogenic claudication; Z20.828 Contact with and (suspected) exposure to other viral communicable diseases
CPT/HCPCS: 80053; 85025; 85610; 85730; 87641; 93005; U0003

== ENCOUNTER → 2020-05-21 | Outpatient (CLI) | payer MEDICARE ==
[2020-02-27 15:05] VITALS: BP 122/62
[~2020-05-21] MED LIST changes: +GEMF600T20 PO; -GEMF600T8 PO; +METH-562 PO; -METH750T2 PO; +VITA-47 PO; -VITA400C6 PO
--- NOTE | 2020-05-21 14:11 | KCIC ---
EXAM: Lumbar spine, 2 views. HISTORY: Fusion. COMPARISON: 02/26/2020 FINDINGS: 2 views of the lumbar spine are obtained. There is instrumented posterior spinal fusion at L3-L4. There is 2 mm grade 1 anterolisthesis at this level, decreased compared to preoperative images . There is stable rightward lateral translation of L3 on L4. There is no evidence of instrumentation loosening. There is minimal retrolisthesis of L2 on L3. There is degenerative endplate remodeling wit h disc space narrowing at all levels. There is facet arthropathy predominantly the lower lumbar level s. There is aortobiiliac atherosclerosis. There are cholecystectomy clips. IMPRESSION: 1. Instrumented fusion at L3-L4. 2. Multilevel degenerative change, described in detail above. 3. Stable scoliosis. There is slight listhesis at the aforementioned levels. Electronically signed by: Destinee Barbosa MD (05/21/2020 2:08 PM) [id number]
== END ==
LOC: KCIC 13:27
PROVIDERS: ATTEND Neurological Surgery
DX: M47.816 Spondylosis without myelopathy or radiculopathy, lumbar region (principal); M41.86 Other forms of scoliosis, lumbar region; Z98.1 Arthrodesis status; Z90.49 Acquired absence of other specified parts of digestive tract
CPT/HCPCS: 72100

== ENCOUNTER → 2020-07-29 | Outpatient (CLI) | payer MEDICARE ==
[2020-02-27 15:05] VITALS: BP 122/62
--- NOTE | 2020-07-29 14:40 | KCIC ---
EXAM: Lumbar spine, 2 views. HISTORY: Fusion. COMPARISON: None. FINDINGS: 2 views of the lumbar spine are obtained. There is instrumented posterior spinal fusion at L3-L4. There is dextroscoliosis centered at L2-L3. There is 4 mm retrolisthesis of L2 on L3. There is multilevel endplate remodeling with disc space narrowing and osteophytosis. There is facet arthropat hy predominantly at L4-L5 and L5-S1. There is right hip osteoarthritis. The left hip is excluded from the [id number]. There are cholecystomy clips. IMPRESSION: 1. Instrumented fusion at L3-L4. 2. Multilevel degenerative change, described above. 3. Lumbar scoliosis and multilevel listhesis, described above. Electronically signed by: Destinee Barbosa MD (07/29/2020 2:37 PM) [id number]
== END ==
LOC: KCIC 13:50
PROVIDERS: ATTEND Neurological Surgery
DX: M47.816 Spondylosis without myelopathy or radiculopathy, lumbar region (principal); M43.16 Spondylolisthesis, lumbar region; M43.26 Fusion of spine, lumbar region
CPT/HCPCS: 72100

== ENCOUNTER → 2020-10-25 | Outpatient (CLI) | payer MEDICARE ==
[2017-12-17 13:20] VITALS: BP_DIAS 62
[2020-02-27 15:05] VITALS: BP_SYST 122
[~2020-10-25] MED LIST changes: +DOCU-148 PO; -DOCU-153 PO
--- NOTE | 2020-10-25 11:45 | RAD ---
PQRS Compliance Statement: One or more of the following individualized dose reduction techniques were utilized for this examinat ion: 1. Automated exposure control 2. Adjustment of the mA and/or kV according to patient size 3. Use of iterative reconstruction technique CT LOW DOSE LUNG SCREEN 10/25/2020 10:11 AM Indication: Lung cancer screening, smoker for 40 years one pack per day. COMPARISON: CT chest 10/20/2019, 11/01/2018. TECHNIQUE: Axial CT images of the chest were obtained without intravenous contrast utilizing low-dose technique. Coronal and sagittal reformats are provided. FINDINGS: There is a 2 mm solid noncalcified pulmonary nodule in the right upper lobe (series 2, image 63), sta ble. 5 mm subpleural solid noncalcified pulmonary nodule identified in the posterior right upper lobe (series 2, image 63). Stable 4 mm solid noncalcified pulmonary nodule in the lingula (series 2, imag e 111). Stable 4 mm solid noncalcified pulmonary nodule in the right lower lobe (series 2, image 1164 ). No pleural effusions, pulmonary vascular congestion or pneumothorax. Subpleural reticular intersti tial changes identified at the lung bases. Heart size borderline enlarged. Three-vessel coronary vasc ular calculations are present. Thoracic aorta is normal in course and caliber with mild calcified ath eromatous plaque. The bladder surgically absent. No suspicious abnormality within the upper abdomen. No significant osseous abnormality is identified. Median sternotomy changes are present. IMPRESSION: Stable solid noncalcified pulmonary nodules measure up to 5 mm in the subpleural right upper lobe. Selena ng RADS category 2, benign appearance or behavior. Recommend low-dose chest CT in one year. Mild centrilobular pulmonary emphysema. Mild subpleural reticular interstitial changes at the lung ba ses. Electronically signed by: Sharona Medina MD (10/25/2020 11:42 AM) [id number]
== END ==
LOC: CT 09:23
PROVIDERS: ATTEND Internal Medicine Pulmonary Disease
DX: Z12.2 Encounter for screening for malignant neoplasm of respiratory organs (principal); R91.8 Other nonspecific abnormal finding of lung field; J43.2 Centrilobular emphysema; I51.7 Cardiomegaly; I70.0 Atherosclerosis of aorta; F17.210 Nicotine dependence, cigarettes, uncomplicated
CPT/HCPCS: 71271

== ENCOUNTER → 2021-02-04 | Outpatient (CLI) | payer MEDICARE ==
[2020-02-27 15:05] VITALS: BP 122/62
[~2021-02-04] MED LIST changes: +GADOTERATE 7.5 MMOL/15ML VIAL. IVP ONE
--- NOTE | 2021-02-04 10:58 | KCIC ---
EXAM: Lumbar spine, 2 views. HISTORY: Radiculopathy. COMPARISON: 07/29/2020 FINDINGS: 2 views of the lumbar spine are obtained. There is dextroscoliosis centered at L3. There is leftward lateral translation of L1 on L2 and rightward lateral translation of L3 on L4. There is ins trumented posterior spinal fusion at L3-L4. There is suggestion of lucency surrounding the left L3 tr anspedicular screw. There is 2 mm grade 1 anterolisthesis at this level. There is 2 mm retrolisthesis of L2 on L3. There is multilevel endplate remodeling with disc space narrowing and facet arthropathy . IMPRESSION: 1. Instrumented fusion at L3-L4. The instrumentation is unchanged. There is suggestion of stable luce ncy surrounding the left L3 transpedicular screw. This is only seen in a single projection and may be artifactual. 2. Degenerative change throughout the and lumbar spine and lumbar scoliosis, stable compared to the p rior study. Electronically signed by: Destinee Barbosa MD (02/04/2021 10:55 AM) [id number]
--- NOTE | 2021-02-04 11:55 | KCIC ---
EXAM: Lumbar spine MRI without and with contrast. HISTORY: Radiculopathy. TECHNIQUE: Multiplanar, multisequence magnetic resonance imaging of the lumbar spine was performed wi thout and with contrast. COMPARISON: Radiographs obtained on the same date. MRI dated 09/08/2019. FINDINGS: There is instrumented posterior spinal fusion at L3-L4. There is S-shaped lumbar scoliosis. There is 3 mm retrolisthesis of L2 on L3. There is degenerative endplate remodeling with disc space narrowing, osteophytosis and Schmorl's node formation at all levels. The findings are most significan t along the right aspect of L3-L4 due to maximum sclerotic concavity in this location. There is parti al visual location of degenerative change involving the right sacroiliac joint. There is no suspicious osseous lesion. There is degenerative endplate signal change due to edema at L 1-L2, and to a lesser extent, L4-L5. The conus terminates at T12-L1. There is no acute or subacute fr acture. At L1-L2, there is a broad-based posterior disc protrusion and right foraminal to extra foraminal dis c protrusion with slight superior extrusion superimposed on a disc bulge and endplate osteophytosis. There is mild left greater than right facet arthropathy. There is severe right and [id number] l eft foraminal stenosis with effacement of the exiting right L1 nerve root. There is moderate central canal stenosis. At L2-L3, there is a left lateral recess to extra foraminal disc protrusion superimposed on a left la teral predominant disc bulge and endplate osteophytosis. There is moderate bilateral facet arthropath y. There is mild retrolisthesis. There is mild right and moderate left foraminal stenosis. There is m ild central canal stenosis and narrowing of the left lateral recess. At L3-L4, there is instrumented posterior spinal fusion and laminectomy decompression. There is a bro ad-based posterior disc protrusion with 5 mm superior extrusion superimposed on a left lateral predom inant disc bulge and endplate osteophytosis. There is moderate bilateral facet arthropathy. There is limited evaluation of the neural foramina due to metallic instrumentation artifact. There is suspecte d moderate bilateral foraminal stenosis. At L4-L5, there are bilateral foraminal to extra foraminal disc protrusions superimposed on a disc bu lge and endplate osteophytosis. There is moderate right greater than left facet arthropathy. There ar e partial laminotomy changes. There is moderate right and mild left foraminal stenosis with abutment the exiting L4 nerve roots. There is mild to moderate central canal stenosis. At L5-S1, there is a disc bulge and endplate osteophytosis. There is severe right and mild left facet arthropathy. There is moderate to severe right and mild left foraminal stenosis with abutment the ex iting right greater than left L5 nerve roots. IMPRESSION: 1. Instrumented posterior spinal fusion at L4-L5, new compared to the prior MRI. 2. Multilevel advanced degenerative change involving the lumbar spine, described in detail above. Thi s results in stenosis at multiple levels. The right foraminal stenosis is most significant at L1-L2 a nd L5-S1. The left foraminal stenosis is most significant at L2-L3 and L3-L4. The degenerative change s are slightly increased at L1-L2 compared to the prior MRI. The remainder the levels are not signifi cantly changed. Electronically signed by: Destinee Barbosa MD (02/04/2021 11:53 AM) [id number]
== END ==
LOC: KCIC MRI 10:01
PROVIDERS: ATTEND Neurological Surgery
DX: M47.26 Other spondylosis with radiculopathy, lumbar region (principal); M41.86 Other forms of scoliosis, lumbar region; M43.16 Spondylolisthesis, lumbar region; M51.27 Other intervertebral disc displacement, lumbosacral region; M48.8X7 Other specified spondylopathies, lumbosacral region; M48.07 Spinal stenosis, lumbosacral region; R60.0 Localized edema; M51.46 Schmorl's nodes, lumbar region; M25.78 Osteophyte, vertebrae
CPT/HCPCS: 72100; 72158; 82565; A9575

== ENCOUNTER → 2021-02-14 | Outpatient (CLI) | payer MEDICARE ==
[2020-02-27 15:05] VITALS: BP 122/62
[~2021-02-14] MED LIST changes: -GADOTERATE 7.5 MMOL/15ML VIAL. IVP ONE
--- NOTE | 2021-02-14 13:49 | KCIC ---
CT lumbar spine without contrast dated 02/14/2021. COMPARISON: 02/26/2020. CLINICAL INDICATION: Back pain. Prior back surgery. TECHNIQUE: Contiguous axial imaging of lumbar spine performed with thin cut coronal and sagittal reconstruction. One or more of the following individualized dose reduction techniques were utilized for this examinat ion: 1. Automated exposure control 2. Adjustment of the mA and/or kV according to patient size 3. Use of iterative reconstruction technique FINDINGS: There has been interval posterior lateral fusion at L3-L4 with posterior fusion rods and transpedicul ar screws. No evidence of hardware fracture. No radiolucency along the screw margins. There is eviden ce of prior posterior laminectomy at L3-L4, stable. Linear band of increased density in the subcutane ous tissues posterior to the laminectomy site is similar to prior study, likely postoperative scarrin g. No definite paraspinous fluid collection or soft tissue gas. There is slight anterolisthesis of L3 on L4, stable. Sagittal alignment is otherwise anatomic. Verteb ral body heights are maintained. Mild to moderate endplate hypertrophic changes throughout with multi level disc space narrowing. L1-L2, there is mild broad-based bulge with mild hypertrophic change of the facet joint/ligamentum fl avum. The central canal is mildly narrowed. No significant foraminal compromise. L2-L3, severe disc space narrowing and mild broad-based posterior disc C5 complex with moderate hyper trophic change of the facet joints/ligament flavum. Central canal is adequate. Mild left foraminal na rrowing. The right foramen is adequate. L3-L4, mild broad-based posterior disc osteophyte complex with evidence of prior laminectomy. Hypertr ophic change of the facet joints. Central canal and left foramen are adequate. There is bulging disc and facet arthropathy at the right foramen resulting in mild foraminal stenosis. L4-L5, moderate disc space narrowing with mild broad-based posterior disc osteophyte complex and mode rate hypertrophic change of the facet joints/ligament flavum. Central canal is mildly narrowed. Mild to moderate bilateral foraminal narrowing. L5-S1, mild broad-based bulge with mild facet hypertrophic changes. There is moderate right and mild left foraminal narrowing. The central canal is adequate. Images of the retroperitoneum show no significant abnormality. IMPRESSION: 1. Interval posterior lateral fusion at L3-L4 with no apparent complication. 2. Mild to moderate multilevel spondylosis. There is multilevel mild central stenosis with varying de grees of mild foraminal narrowing. Please see above report for details. Electronically signed by: Shane Bustamante MD (02/14/2021 1:47 PM) [email or web address]
== END ==
LOC: KCIC CT 10:21
PROVIDERS: ATTEND Neurological Surgery
DX: M47.817 Spondylosis without myelopathy or radiculopathy, lumbosacral region (principal); M51.27 Other intervertebral disc displacement, lumbosacral region; M48.07 Spinal stenosis, lumbosacral region; M25.78 Osteophyte, vertebrae; M96.0 Pseudarthrosis after fusion or arthrodesis; Z98.1 Arthrodesis status
CPT/HCPCS: 72131

== ENCOUNTER → 2021-02-21 | Outpatient (CLI) | payer MEDICARE ==
[2020-02-27 15:05] VITALS: BP 122/62
[~2021-02-21] MED LIST changes: +BUPIVACAINE MPF 0.25% 10 ML VIAL. ONE; +methylPREDNISolone ACETATE 40 MG/ML VIAL. ONE
--- NOTE | 2021-02-21 11:13 | PDOC ---
Progress Note - Pain Clinic Date of Service: DOS: DATE: 02/21/21 TIME: 11:07 Diagnosis: Dx: Myofascial pain Lumbar radiculopathy with lumbar degenerative disease lumbar postlaminectomy syndrome History or Present Illness: HPI: 70-year-old female presents with history of pain in the low back status post lumbar laminectomy with fusion L3-4 and decompression L4-5 last seen October 2019 prior to most recent back surgery from February 2020. Patient has new MRI scan which we discussed with her today as well showing posterior spinal fusion at L4- 5 with fusion L3-4 dysmaturation L2-3 moderate right and mild left foraminal stenosis with abutment of the exiting L4 nerve roots L5-S1 shows severe right and mild left facet arthropathy with moderate to severe right and mild left foraminal stenosis with abutment of the exiting right greater than left L5 nerve roots patient reports pain across the low back into the bilateral lower extremities posteriorly mostly in the gluteus and into the thighs worse with standing worse with changing positions patient reports is better with sitting or laying down but a hard chair can exacerbate the pain as well patient reports gen kaiser does not awaken her from sleep at night reports pain is a 9 on scale 10 is worst 6 on average 3 days least is a [address] aching and tight in the back shooting and burning and constant in the legs when standing patient reports no loss of motor function no bowel or bladder incontinence. Physical Exam: VS: Blood pressure is 146/76 pulse 72 respirations 18 temperature is 98.1 F height is 5 foot weight is 171 pounds PE: PHYSICAL EXAMINATION: GENERAL: The patient is awake, alert, oriented, appropriate, very pleasant in demeanor HEENT: Shows normocephalic, atraumatic. Extraocular movements are intact and symmetrical. Oral cavity: Mucous membranes moist and pink. NECK: Shows anterior throat supple without palpable lymphadenopathy noted. Swallow reflex symmetrical. CHEST: Shows normal on inspection. Breath sounds are clear bilaterally, distant but no rales rhonchi or wheezes auscultated. HEART: Shows S1, S2 clear. No murmurs auscultated. ABDOMEN: Soft, nontender, nondistended, obese. No palpable organomegaly is noted. BACK: Shows spine grossly in the midline. Normal-appearing cervical lordotic curvature. There is slightly increased thoracic kyphosis, some minor flattening of the lumbar lordotic curvature, with well-healed midline surgical scar noted. Lumbar paraspinous muscles show symmetrical on inspection, on palpation shows some moderate tenderness diffusely throughout the upper, middle and lower distribution of the paraspinous muscles bilaterally and also into the lower thoracic paraspinous musculature, firm and tender with significant tenderness with palpation throughout the lower distribution of the thoracic paraspinous musculature the upper lower and middle distribution of the lumbar paraspinous muscles into the superior medial gluteus bilaterally very firm ropelike muscles are consistent with trigger point areas of muscle without significant radiation patient. Patient shows good rotation of motion lumbar spine as well as some limited extension but not secondary to pain and some good forward flexion at 45 degrees without significant difficulty. No tenderness over the spinous processes, sacrum or sacroiliac regions. EXTREMITIES: Lower extremities show deep tendon reflexes 2+ in the patellar and tendo calcaneus tendons. Motor exam is 4 on a scale of 5 with right dorsiflexion, extension, quadriceps and hamstring flexion and 4/5 on the left. Peripheral pulses are 1+ posterior tibial. No peripheral edema is noted bilaterally. Lower extremities are warm and dry to touch, equal in color and appearance. SKIN: Shows warm and dry, good turgor. No edema. No sores, rashes or bruising throughout. Procedure: Procedure: Options discussed with patient. Patient chart was viewed as her current medication regimen updated current review of systems updated today as well. We will proceed with trigger point injections of the aforementioned musculature bilateral thoracic paraspinous muscle bilateral lumbar paraspinous musculature and bilateral gluteus musculature. Risk were discussed including not limited to bleeding infection possibility of intravascular injection sequelae spread local anesthetic numbness side effects steroid medication and poor results regarding pain control. Patient understands wished to proceed. Patient will return to clinic in approximately 2 weeks for follow-up, was counseled as return appointment, activity level, and side effect to be aware of. 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 Medication Injected: Med Injected: Under sterile prep and drape patient sitting position thoracic paraspinous posterior lumbar paraspinous posterior and gluteus musculature was identified with multiple trigger points identified using 25-gauge needle and negative aspiration each injection site total of 10 cc 0.25% ropivacaine and total of 40 mg Depo-Medrol was injected. Patient tolerated procedure well and had no immediate complications. Condition at Discharge: Condition at Discharge: Condition at discharge stable, paced tolerated procedure well and had no complications. ANDI MARCANO MD Feb 21, 2021 11:13
--- NOTE | 2021-02-21 11:14 | PDOC4 ---
Procedure Note: ICD 10 Code: ICD 10 Code: M60.89 M54.16 M51.36 M 96.1 Procedure Note: Patient was consented for trigger point injections. Risk were discussed including but not limited to bleeding infection possibility of intravascular injection sequelae spread local anesthetic and numbness side effects of steroid medication and poor results regarding pain control. Patient understands wished to proceed. Under sterile prep and drape patient sitting position thoracic paraspinous posterior lumbar paraspinous posterior and gluteus musculature was identified with multiple trigger points identified using 25-gauge needle and negative aspiration each injection site total of 10 cc 0.25% ropivacaine and total of 40 mg Depo-Medrol was injected. Patient tolerated procedure well and had no immediate complications. ANDI MARCANO MD Feb 21, 2021 11:14
== END | disposition home or self-care (01) ==
LOC: PNCL 09:52
PROVIDERS: ATTEND Anesthesiology
DX: M79.18 Myalgia, other site (principal); M51.16 Intervertebral disc disorders with radiculopathy, lumbar region; M96.1 Postlaminectomy syndrome, not elsewhere classified; I10 Essential (primary) hypertension; I25.10 Atherosclerotic heart disease of native coronary artery without angina pectoris; E78.00 Pure hypercholesterolemia, unspecified; G47.30 Sleep apnea, unspecified; J44.9 Chronic obstructive pulmonary disease, unspecified; K21.9 Gastro-esophageal reflux disease without esophagitis; M19.90 Unspecified osteoarthritis, unspecified site; F41.9 Anxiety disorder, unspecified; F32.9 Major depressive disorder, single episode, unspecified; F17.210 Nicotine dependence, cigarettes, uncomplicated; Z90.49 Acquired absence of other specified parts of digestive tract; Z98.890 Other specified postprocedural states; Z79.82 Long term (current) use of aspirin; Z79.899 Other long term (current) drug therapy; Z88.8 Allergy status to other drugs, medicaments and biological substances
CPT/HCPCS: 20553; J1030; J3490

== ENCOUNTER → 2021-03-04 | Outpatient (CLI) | payer MEDICARE ==
[2020-02-27 15:05] VITALS: BP 122/62
[~2021-03-04] MED LIST changes: -BUPIVACAINE MPF 0.25% 10 ML VIAL. ONE; +IOHEXOL 180 MG/ML 10 ML VIAL. ONE; +methylPREDNISolone ACETATE 80 MG/ML VIAL. ONE
--- NOTE | 2021-03-04 12:45 | PDOC ---
Progress Note - Pain Clinic Date of Service: DOS: DATE: 03/04/21 TIME: 12:40 Diagnosis: Dx: Lumbar radiculopathy with lumbar degenerative disc disease and lumbar postlaminectomy syndrome Myofascial pain History or Present Illness: HPI: 70-year-old female returns for follow-up status post trigger point injections reports about 50% improvement after the injections but still pain now in the low back radiating to the lower extremities posterior gluteus posterior thighs posterior lateral thighs posterior calves more on the left than the right but present bilaterally with walking standing changing positions better with sitting or laying down but during her sleep about once a night patient reports most nights he sleeps fairly well however. Patient reports her pain is a 7 on scale 10 is worse over the past week for an average 1 its least and is a 4 today. Patient reports that her back is much less tight after some trigger point injections but still is radicular pain which is radiating into the lower extremities as previously. Patient reports the pain is aching and burning in the low back cramping and shooting in the lower extremities. Patient reports no bowel or bladder incontinence. Physical Exam: VS: Blood pressure is 145/67 pulse 77 respirations 18 temperature 98.0 F height is 5 feet 1 inches weight is 170 pounds PE: PHYSICAL EXAMINATION: GENERAL: The patient is awake, alert, oriented, appropriate, very pleasant in demeanor HEENT: Shows normocephalic, atraumatic. Extraocular movements are intact and symmetrical. Oral cavity: Mucous membranes moist and pink. NECK: Shows anterior throat supple without palpable lymphadenopathy noted. Swallow reflex symmetrical. CHEST: Shows normal on inspection. Breath sounds are clear bilaterally, no rales rhonchi wheezes auscultated. HEART: Shows S1, S2 clear. No murmurs auscultated. ABDOMEN: Soft, nontender, nondistended. No palpable organomegaly is noted. BACK: Shows spine grossly in the midline. Normal-appearing cervical lordotic curvature. There is increased thoracic kyphosis, flattening of the lumbar lordotic curvature with well-healed surgical scarring. Lumbar paraspinous muscles show symmetrical on inspection, on palpation shows some moderate tenderness diffusely throughout the upper, middle and lower distribution of the paraspinous muscles bilaterally and also into the lower thoracic paraspinous musculature, firm and tender, but without specific trigger points, without radiation of pain. The patient has good rotational motion of the lumbar spine, both laterally as well as extension and flexion without significant difficulty. EXTREMITIES: Lower extremities show deep tendon reflexes 2+ in the patellar and tendo calcaneus tendons. Motor exam is 4 on a scale of 5 with right dorsiflexion, extension, quadriceps and hamstring flexion and 4/5 on the left. Peripheral pulses are 1+ posterior tibial. No peripheral edema is noted bilaterally. Lower extremities are warm and dry. SKIN: Shows warm and dry, good turgor. No edema. No sores, rashes or bruising throughout. Procedure: Procedure: Options discussed with the patient. Patient's old chart was reviewed as her current medication regimen updated current review of systems updated today as well. We will proceed with a lumbar epidural steroid injection today with fluoroscopic guidance. Risks were discussed including but not limited to: Bleeding, infection, possibility of epidural hematoma and subsequent neurological compromise, dural puncture, headaches, spinal cord and/or nerve damage, side effects of steroid medication, and poor results regarding pain control. Patient understands and wished to proceed. Patient will return to clinic in approximately 3 weeks for follow-up, was counseled as return appointment, activity level, and side effects to be aware of. Medication Injected: Med Injected: Procedure is lumbar epidural steroid injection under local anesthetic using sterile prep and drape at the L5-S1 level using C-arm fluoroscopic guidance in both AP and lateral views medications injected is 120 mg Depo-Medrol +10mL preservative-free normal saline and 2 mL contrast- condition at discharge is stable patient tolerated procedure well had no complications. Condition at Discharge: Condition at Discharge: Condition at discharge stable, patient tolerated the procedure well and had no complications. ANDI MARCANO MD Mar 04, 2021 12:45
--- NOTE | 2021-03-04 12:45 | PDOC4 ---
Procedure Note: ICD 10 Code: ICD 10 Code: M54.17 M51.87 M 96.1 Procedure Note: Patient was consented for lumbar epidural steroid injection with fluoroscopic guidance. Risks were discussed including but not limited to: Bleeding, infection, possibility of epidural hematoma and subsequent neurological compromise, dural puncture, headaches, spinal cord and/or nerve damage, side effects of steroid medication, and poor results regarding pain control. Patient understands and wished to proceed. Procedure is lumbar epidural steroid injection under local anesthetic using ster ile prep and drape at the L5-S1 level using C-arm fluoroscopic guidance in both AP and lateral views medications injected is 120 mg Depo-Medrol +10mL preservative-free normal saline and 2 mL contrast- condition at discharge is stable patient tolerated procedure well had no complications. ANDI MARCANO MD Mar 04, 2021 12:45
== END | disposition home or self-care (01) ==
LOC: PNCL 11:38
PROVIDERS: ATTEND Anesthesiology
DX: M51.16 Intervertebral disc disorders with radiculopathy, lumbar region (principal); M96.1 Postlaminectomy syndrome, not elsewhere classified; M79.18 Myalgia, other site; I25.10 Atherosclerotic heart disease of native coronary artery without angina pectoris; I10 Essential (primary) hypertension; E78.00 Pure hypercholesterolemia, unspecified; J44.9 Chronic obstructive pulmonary disease, unspecified; G47.30 Sleep apnea, unspecified; M19.90 Unspecified osteoarthritis, unspecified site; F41.9 Anxiety disorder, unspecified; F32.9 Major depressive disorder, single episode, unspecified; Z90.49 Acquired absence of other specified parts of digestive tract; Z98.890 Other specified postprocedural states; Z79.899 Other long term (current) drug therapy
CPT/HCPCS: 62323; J1030; J1040; Q9965

== ENCOUNTER → 2021-03-25 | Outpatient (CLI) | payer MEDICARE ==
[2020-02-27 15:05] VITALS: BP 122/62
[~2021-03-25] MED LIST changes: -methylPREDNISolone ACETATE 40 MG/ML VIAL. ONE
--- NOTE | 2021-03-25 13:47 | PDOC ---
Progress Note - Pain Clinic Date of Service: DOS: DATE: 03/25/21 TIME: 13:43 Diagnosis: Dx: Lumbar radiculopathy with lumbar degenerative disease and lumbar postlaminectomy syndrome Myofascial pain History or Present Illness: HPI: 70-year-old female returns for follow-up status post lumbar epidural steroid injection March 04 patient very well with about 50% improvement after the injection reports pain in the low back is better but now has significant pain radiating into the right posterior hip and gluteus also in the left posterior hip and gluteus which she has not had before patient reports that the right side has been more painful in the past but the left side is now becoming much more noticeable since her last visit. Patient reports trigger points that we performed in February 21 are still helping the low back and mid back as well but this newer pain especially on the left side is gotten somewhat concerned. Patient reports is worse with walking standing changing positions better with sitting or laying down generally does not awaken her from sleep at night patient reports no bowel or bladder incontinence, no loss of motor function but signific ant fatigability of both lower extremities with standing and ambulating. Physical Exam: VS: Blood pressure is 145/63 pulse 85 respirations 18 temperature is 98.5 F height is 5 feet 1 inch weight is 173 pounds PE: PHYSICAL EXAMINATION: GENERAL: The patient is awake, alert, oriented, appropriate, very pleasant in demeanor. HEENT: Shows normocephalic, atraumatic. Extraocular movements are intact and symmetrical. Oral cavity: Mucous membranes moist and pink. NECK: Shows anterior throat is supple without palpable lymphadenopathy. Swallow reflex symmetrical. CHEST: Shows normal on inspection. Breath sounds are clear bilaterally. HEART: Shows S1, S2 clear. No murmurs auscultated. ABDOMEN: Soft, nontender, nondistended. No palpable organomegaly is noted. BACK: Shows spine grossly in the midline. Normal-appearing cervical lordotic curvature. There is slightly increased thoracic kyphosis, some minor flattening of the lumbar lordotic curvature. Lumbar paraspinous muscles show symmetrical on inspection, on palpation shows some moderate tenderness diffusely throughout the upper, middle and lower distribution of the paraspinous muscles with some moderate tenderness but without specific trigger points identified on exam today, without radiation of pain. The patient has good rotational motion of the lumbar spine, both laterally as well as extension and flexion without significant difficulty. No tenderness over the spinous processes, sacrum or sacroiliac regions. EXTREMITIES: Lower extremities show deep tendon reflexes 2+ in the patellar and tendo calcaneus tendons. Motor exam is 4 on a scale of 5 with right dorsiflexion, extension, quadriceps and hamstring flexion and 4/5 on the left. Peripheral pulses are 1+ posterior tibial. No peripheral edema is noted bilaterally. Lower extremities are warm and dry. SKIN: Shows warm and dry, good turgor. No edema. No sores, rashes or bruising throughout. Procedure: Procedure: Options were discussed with the patient. Patient's old chart was reviewed as her current medication regimen updated current review of systems updated today as well. We will proceed with a lumbar epidural steroid injection today with fluoroscopic guidance. Risks were discussed including but not limited to: Bleeding, infection, possibility of epidural hematoma and subsequent neurological compromise, dural puncture, headaches, spinal cord and/or nerve damage, side effects of steroid medication, and poor results regarding pain control. Patient understands and wished to proceed. Patient will return to the clinic in approximately 2 weeks for follow-up, was counseled as to return appointment, activity level, and side effects to be aware of. Medication Injected: Med Injected: Procedure is lumbar epidural steroid injection under local anesthetic using sterile prep and drape at the L5-S1 level using C-arm fluoroscopic guidance in both AP and lateral views medications injected is 120 mg Depo-Medrol +10mL preservative-free normal saline and 2 mL contrast- condition at discharge is stable patient tolerated procedure well had no complications. Condition at Discharge: Condition at Discharge: Condition at discharge is stable, patient tolerated the procedure well and had no complications. ANDI MARCANO MD Mar 25, 2021 13:47
--- NOTE | 2021-03-25 13:48 | PDOC4 ---
Procedure Note: ICD 10 Code: ICD 10 Code: M54.16 M51.36 M96.1 M60.89 Procedure Note: Patient was consented for lumbar epidural steroid injection with fluoroscopic guidance. Risks were discussed including but not limited to: Bleeding, infection, possibility of epidural hematoma and subsequent neurological compromise, dural puncture, headaches, spinal cord and/or nerve damage, side effects of steroid medication, and poor results regarding pain control. Patient understands and wished to proceed. Procedure is lumbar epidural steroid injection under local anesthetic using sterile prep and drape at the L5-S1 level using C-arm fluoroscopic guidance in both AP and lateral views medications injected is 120 mg Depo-Medrol +10mL preservative-free normal saline and 2 mL contrast- condition at discharge is stable patient tolerated procedure well had no complications. ANDI MARCANO MD Mar 25, 2021 13:48
== END | disposition home or self-care (01) ==
LOC: PNCL 11:35
PROVIDERS: ATTEND Anesthesiology
DX: M51.16 Intervertebral disc disorders with radiculopathy, lumbar region (principal); M96.1 Postlaminectomy syndrome, not elsewhere classified; M79.18 Myalgia, other site; I25.10 Atherosclerotic heart disease of native coronary artery without angina pectoris; I10 Essential (primary) hypertension; E78.00 Pure hypercholesterolemia, unspecified; G47.30 Sleep apnea, unspecified; M19.90 Unspecified osteoarthritis, unspecified site; F41.9 Anxiety disorder, unspecified; F32.9 Major depressive disorder, single episode, unspecified; F17.210 Nicotine dependence, cigarettes, uncomplicated; Z79.82 Long term (current) use of aspirin; Z79.899 Other long term (current) drug therapy; Z90.49 Acquired absence of other specified parts of digestive tract; Z98.890 Other specified postprocedural states; Z88.8 Allergy status to other drugs, medicaments and biological substances; Z82.49 Family history of ischemic heart disease and other diseases of the circulatory system
CPT/HCPCS: 62323; J1040; Q9965

== ENCOUNTER → 2021-04-22 | Outpatient (CLI) | payer MEDICARE ==
[2020-02-27 15:05] VITALS: BP 122/62
--- NOTE | 2021-04-22 11:47 | PDOC ---
Progress Note - Pain Clinic Date of Service: DOS: DATE: 04/22/21 TIME: 11:43 Diagnosis: Dx: Lumbar radiculopathy with lumbar disease lumbar postlaminectomy syndrome Myofascial pain Osteoarthritis History or Present Illness: HPI: 70-year-old female returns for follow-up status post lumbar epidural steroid injection last seen March 25, 2021 patient did very well with about 80% improvement initially now down about 40 to 50% improvement in the low back and especially the right lower extremity with pain rating the posterior gluteus posterior thigh lateral thigh anterior thigh medial thigh and into the posterior calf and knee as well patient reports is radiating constant aching in the back tight and stabbing in the back radiating and shooting in the right lower extremity patient reports it is a 9 on scale 10 is worse over the past week 7 on average for its least and is a 7 today. Patient reports no bowel bladder incontinence significant fatigability the right lower extremity with walking and standing. Patient also reports significant pain in the bilateral hips as well as knees with history of osteoarthritis. Patient reports no bowel or bladder incontinence. Physical Exam: VS: Blood pressure is 130/66 pulse 94 respirations 18 temperature 98.1 F height 5 feet 1 inches weight is 173 pounds. PE: PHYSICAL EXAMINATION: GENERAL: The patient is awake, alert, oriented, appropriate, very pleasant in demeanor HEENT: Shows normocephalic, atraumatic. Extraocular movements are intact and symmetrical. Oral cavity: Mucous membranes moist and pink. NECK: Shows anterior throat supple without palpable lymphadenopathy noted. Swallow reflex symmetrical. CHEST: Shows normal on inspection. Breath sounds are clear bilaterally, no rales rhonchi or wheezes auscultated. HEART: Shows S1, S2 clear. No murmurs auscultated. ABDOMEN: Soft, nontender, nondistended. No palpable organomegaly is noted. No rebound or guarding demonstrated. BACK: Shows spine grossly in the midline. Normal-appearing cervical lordotic curvature. There is increased thoracic kyphosis, some flattening of the lumbar lordotic curvature with midline surgical scarring noted. Lumbar paraspinous muscles show symmetrical on inspection, on palpation shows some moderate tenderness diffusely throughout the upper, middle and lower distribution of the paraspinous muscles without specific trigger points, without radiation of pain. The patient has good rotational motion of the lumbar spine, both laterally as well as extension and flexion without significant difficulty. No tenderness over the spinous processes, sacrum or sacroiliac regions. EXTREMITIES: Lower extremities show deep tendon reflexes 1+ in the patellar and tendo calcaneus tendons. Motor exam is 4 on a scale of 5 with right dorsiflexion, extension, quadriceps and hamstring flexion and 4/5 on the left. Peripheral pulses are 1 posterior tibial. No peripheral edema is noted bilaterally. Lower extremities are warm and dry to touch, equal in color and appearance. SKIN: Shows warm and dry, good turgor. No edema. No sores, rashes or bruising throughout. Procedure: Procedure: Options discussed with patient. Patient chart was reviewed as her current medication regimen updated current review of systems updated today as well. We will proceed with a lumbar epidural steroid injection today with fluoroscopic guidance. Risks were discussed including but not limited to: Bleeding, infection, possibility of epidural hematoma and subsequent neurological c ompromise, dural puncture, headaches, spinal cord and/or nerve damage, side effects of steroid medication, and poor results regarding pain control. Patient understands and wished to proceed. Patient will return to the clinic in approximately 2 weeks for follow-up, was counseled as to return appointment, activity level, and side effects to be aware of. We discussed patient's osteoarthritis symptoms in her hips as well as her knees and will start on new medication of meloxicam 15 mg 1 tablet p.o. daily. Sha higginbotham was given instructions as well as side effects aware of especially increased potential for bleeding. Patient understands and will follow-up as scheduled. Medication Injected: Med Injected: Procedure is lumbar epidural steroid injection under local anesthetic using sterile prep and drape at the L5-S1 level using C-arm fluoroscopic guidance in both AP and lateral views medications injected is 120 mg Depo-Medrol +10mL preservative-free normal saline and 2 mL contrast- condition at discharge is stable patient tolerated procedure well had no complications. Condition at Discharge: Condition at Discharge: Condition at discharge stable, patient tolerated the procedure well and had no complications. ANDI MARCANO MD Apr 22, 2021 11:47
--- NOTE | 2021-04-22 11:48 | PDOC4 ---
Procedure Note: ICD 10 Code: ICD 10 Code: M54.16 M51.36 M 96.1 Procedure Note: Patient was consented for lumbar epidural steroid injection with fluoroscopic guidance. Risks were discussed including but not limited to: Bleeding, infection, possibility of epidural hematoma and subsequent neurological compromise, dural puncture, headaches, spinal cord and/or nerve damage, side effects of steroid medication, and poor results regarding pain control. Patient understands and wished to proceed. Procedure is lumbar epidural steroid injection under local anesthetic using ster ile prep and drape at the L5-S1 level using C-arm fluoroscopic guidance in both AP and lateral views medications injected is 120 mg Depo-Medrol +10mL preservative-free normal saline and 2 mL contrast- condition at discharge is stable patient tolerated procedure well had no complications. ANDI MARCANO MD Apr 22, 2021 11:48
== END | disposition home or self-care (01) ==
LOC: PNCL 11:18
PROVIDERS: ATTEND Anesthesiology
DX: M51.16 Intervertebral disc disorders with radiculopathy, lumbar region (principal); M96.1 Postlaminectomy syndrome, not elsewhere classified; M79.18 Myalgia, other site; M19.90 Unspecified osteoarthritis, unspecified site; I25.10 Atherosclerotic heart disease of native coronary artery without angina pectoris; I10 Essential (primary) hypertension; E78.00 Pure hypercholesterolemia, unspecified; J44.9 Chronic obstructive pulmonary disease, unspecified; G47.30 Sleep apnea, unspecified; K21.9 Gastro-esophageal reflux disease without esophagitis; F41.9 Anxiety disorder, unspecified; F32.9 Major depressive disorder, single episode, unspecified; F17.210 Nicotine dependence, cigarettes, uncomplicated; Z90.49 Acquired absence of other specified parts of digestive tract; Z98.890 Other specified postprocedural states; Z79.899 Other long term (current) drug therapy; Z88.8 Allergy status to other drugs, medicaments and biological substances
CPT/HCPCS: 62323; J1040; Q9965

== ENCOUNTER → 2021-07-14 | Outpatient (CLI) | payer MEDICARE ==
[2020-02-27 15:05] VITALS: BP 122/62
[~2021-07-14] MED LIST changes: -IOHEXOL 180 MG/ML 10 ML VIAL. ONE; +REGADENOSON 0.4 MG/5 ML DISP.SYRIN. IV ONE; -methylPREDNISolone ACETATE 80 MG/ML VIAL. ONE
--- NOTE | 2021-07-14 10:21 | RAD ---
Bilateral Duplex Carotid Ultrasound Indication: Reason: CAROTID BRUIT / Spl. Instructions: CARDIOLOGY TO READ / History: Procedure: Two dimensional, duplex and color-flow images and spectral analysis are obtained of the ca rotid arteries bilaterally. Vertebral arteries are also imaged. Findings: Right Carotid: The 2 D images demonstrate moderate plaquing with no evidence of significant narrowin g. The color images are normal without turbulence or jet effect. On the right ICA peak systolic [place] is 114 cm/sec. I The ICA/CCA ratio is 1.2 . Left Carotid: The 2 D images demonstrate moderate plaquing with no evidence of significant narrowing . The color images are normal without turbulence or jet effect. On the left ICA peak systolic velocit y is 113 cm/sec. The ICA/CCA ratio is 0.8 . Vertebral Arteries: The right vertebral artery is normal with normal direction of flow. The left dara tebral artery is normal with normal direction of flow. Impression: Normal carotid ultrasound with no hemodynamically significant stenosis. PQRS Compliance Statement - Stenosis calculations for CT, MR and conventional angiography are based upon measurement of the distal ICA diameter in accordance with the NASCET methodology. Stenosis calc ulations for carotid ultrasound studies are derived from validated velocity criteria which are known to correlate with the NASCET methodology. Electronically signed by: Nikolai Forrester III, MD (07/14/2021 10:19 AM) [facility]
--- NOTE | 2021-07-15 11:52 | RAD ---
MR#: [id number] Date of Study: 07/14/2021 Ordering Physician: GIOVANNI PERSON, Referring Physician: JUANY LANDERS Tech: LIZETTE Melgar APPROVED REPORT Test Type: Pharmacological Stress Nurse/Tech: Layne Saldivar RN Test Indications: CAD Cardiac History: Hypertension,1 stent, CABG 99' Medications: See Electronic Medical Record Medical History: See Electronic Medical Record Resting ECG: SR with BBB Resting Heart Rate: 78 bpm Resting Blood Pressure: 136/72mmHg Pretest Chest Pain: No chest pain Nurse/Tech Notes S1,S2 and lungs diminished throughout. Consent: The procedure was explained to the patient in lay terms. Informed consent was witnessed. Willie eout was entered into [facility]SI. History and Stress Test performed by LIZETTE Melgar Pharm. Details Pharmacologic stress testing was performed using 0.4mg per 5ml of regadenoson given intravenously ove r 7-10 seconds. Stress Symptoms Dyspnea,headache POST EXERCISE Reason for Termination: Infusion complete Target HR: No Max HR: 107 bpm 84% of Maximum Predicted HR: 127 bpm Max Blood Pressure: 139/62mmHg Blood Pressure response to exercise: Normal blood pressure response during stress. Heart Rate response to exercise: WNL Chest Pain: No. Arrhythmia: Yes. PVC ST Change: No. INTERPRETATION Stress EKG Conclusion: No evidence of stress induced EKG changes. Imaging Protocol IMAGE PROTOCOL: Rest Tc-99m/stress Tc-99m 1 day Rest: Stress: Viability: Radiopharm.Tc99m HczyrizhyKs65m Sestamibi Soed16rYy 31mCi Duration 15min. 13min. Img Date 07/14/2021 07/14/2021 Inj-Img Snkb75feg. 60min. Rest Admin Site:IV - Right AntecubitalAdministrator:LIZETTE Melgar Stress Admin Site: IV - Right AntecubitalAdministrator: SHANITA French, ARRT (R)(N) STRESS DATA End Diast. Vol.113.0mlLVEDV index BSA66.0ml End Syst. Vol.48.0mlLVESV index BSA28.0ml Myocardial Vtkl371.0gEject. Wvviiagr80.0% Stress Scores Regional WT1.00Summed WT15.00 Regional WM0.00Summed WM5.00 The rest and stress images show normal perfusion, normal contraction and thickening. LV Perf. Quant 17 Seg. SSS4.00 17 Seg. SRS7.00 17 Seg. SDS0.00 Stress Defect Extent (% LAD)6.90Rest Defect Extent (% LAD)13.80Rev. Defect Extent (% LAD)0.00 Stress Defect Extent (% LCX) 0.00Rest Defect Extent (% LCX)2.50Rev. Defect Extent (% LCX)0.00 Stress Defect Extent (% RCA)26.70Rest Defect Extent (% RCA)11.10Rev. Defect Extent (% RCA)8.90 Stress Defect Extent (% FANNY)8.30Rest Defect Extent (% FANNY)9.80Rev. Defect Extent (% FANNY)2.00 Other Information Quality:Average Risk Assessment: Low Risk Conclusion 1. No evidence of EKG changes with stress testing. 2. Normal perfusion at stress/rest. 3. Low risk study. 4. EF > 60%. Signed by : Matt Bacon, Electronically Approved : 07/15/2021 11:52:31
--- NOTE | 2021-07-15 11:55 | CARD ---
MR#: [id number] Date of Study: 07/14/2021 Ordering Physician: GIOVANNI PERSON, Referring Physician: Bucky LANDERS: Wanda Dailey [facility] APPROVED REPORT EXAM: Two-dimensional and M-mode echocardiogram with Doppler and color Doppler. Other Information Quality : AverageHR: 78bpm Rhythm : NSRTechnically limited study due to body habitus. INDICATION Cardiac Disease: CAD 2D DIMENSIONS Left Atrium(2D)4.6 (1.6-4.0cm)IVSd1.4 (0.7-1.1cm) Aortic Root(2D)2.9 (2.0-3.7cm)LVDd5.3 (3.9-5.9cm) LVOT Diameter1.8 (1.8-2.4cm)PWd1.3 (0.7-1.1cm) LVDs3.4 (2.5-4.0cm)FS (%) 36.1 % SV88.4 mlLVEF(%)65.3 (>50%) Aortic Valve AoV Peak Carlo.212.6cm/sAoV VTI51.2cm AO Peak GR.18.1mmHgLVOT Peak Carlo.116.6cm/s AO Mean GR.9mmHgAVA (VMAX)1.43cm2 AI P 1/2 Qrug330ar Mitral Valve MV E Kgencezn40.0cm/sMV DECEL [id number] MV A Uagxphrr46.4cm/sE/A Ratio0.8 Pulmonary Valve PV Peak Fnqjjhli368.5cm/s Tricuspid Valve TR P. Lprccatl483ve/sTR Peak Gr.27mmHg Pulmonary Vein S1 Gankfsju87.9cm/sD2 Usnnctrh26.2cm/s LEFT VENTRICLE The left ventricle is normal size. There is normal left ventricular wall thickness. Left ventricular systolic function is normal. The left ventricular ejection fraction is within the normal range. EF 55 % The basal to mid inferior wall is akinetic. Otherwise, grossly normal wall motion. Tissue Doppler i maging reveals mild left ventricular diastolic dysfunction. No left ventricle thrombus noted on this study. There is no ventricular septal defect visualized. There is no left ventricular aneurysm. There is no mass noted in the left ventricle. RIGHT VENTRICLE The right ventricle is normal size. There is normal right ventricular wall thickness. The right ventr icular systolic function is normal. ATRIA The left atrium is mildly dilated. The right atrium size is normal. The interatrial septum is intact with no evidence for an atrial septal defect or patent foramen ovale as noted on 2-D or Doppler imagi ng. AORTIC VALVE The aortic valve is mildly sclerotic. Doppler and Color Flow revealed mild aortic regurgitation. Calc ulated aortic valve area is 1.5 cm2 with maximum pressure gradient of 18 mmHg and mean pressure gradi ent of 9.2 mmHg. There is no aortic valvular vegetation. MITRAL VALVE The mitral valve is normal in structure and function. There is no evidence of mitral valve prolapse. There is no mitral valve stenosis. Doppler and Color-flow revealed mild mitral regurgitation. TRICUSPID VALVE The tricuspid valve is normal in structure and function. There is trivial tricuspid regurgitation. RV SP 30 mm Hg. There is no tricuspid valve prolapse or vegetation. There is no tricuspid valve stenosis . PULMONIC VALVE There is no pulmonic valvular regurgitation. There is no pulmonic valvular stenosis. GREAT VESSELS The aortic root is normal in size. The ascending aorta is not well seen. The IVC is normal in size an d collapses >50% with inspiration. PERICARDIAL EFFUSION There is no pleural effusion. There is no evidence of significant pericardial effusion. Critical Notification Critical Value: No <Conclusion> Left ventricular systolic function is normal. The left ventricular ejection fraction is within the no rmal range. EF 55% The basal to mid inferior wall is akinetic. Otherwise, grossly normal wall motion. Doppler and Color Flow revealed mild aortic regurgitation. Signed by : Matt Bacon, Electronically Approved : 07/15/2021 11:55:04
== END ==
LOC: NM 07:51
PROVIDERS: ATTEND Internal Medicine Cardiovascular Disease
DX: I08.0 Rheumatic disorders of both mitral and aortic valves (principal); I65.23 Occlusion and stenosis of bilateral carotid arteries; I25.10 Atherosclerotic heart disease of native coronary artery without angina pectoris
CPT/HCPCS: 78452; 93017; 93306; 93880; A9500; J2785; C8929